=== PATIENT | male | born 1980 ===

== ENCOUNTER 2020-08-19 11:31 | Inpatient (IN) | payer OTHER ==
[~2020-08-19] VITALS: Ht 175.3 cm; Wt 81.6 kg
[~2020-08-19 11:31] MED LIST: CIPRO500 MG PO; FLAGYL500MG PO; INTESTINEX1 CAP PO; ULTRACET PO
== END 2020-08-22 18:44 | disposition home or self-care (01) | DRG 392 ==
LOC: ER 11:31 → SURH 15:03
PROVIDERS: ADMIT Internal Medicine; ATTEND Internal Medicine
PROC: BW21ZZZ Computerized Tomography (CT Scan) of Abdomen and Pelvis (ICD-10-PCS; principal; 2020-08-19)
PROC: 02HV33Z Insertion of Infusion Device into Superior Vena Cava, Percutaneous Approach (ICD-10-PCS; 2020-08-21)
DX: K57.32 Diverticulitis of large intestine without perforation or abscess without bleeding (principal); R10.32 Left lower quadrant pain; R29.898 Other symptoms and signs involving the musculoskeletal system; M62.81 Muscle weakness (generalized); M62.838 Other muscle spasm; Z20.828 Contact with and (suspected) exposure to other viral communicable diseases

== ENCOUNTER 2025-09-27 09:52 | Emergency (ER) | payer OTHER ==
[~2025-09-27] VITALS: Ht 175.3 cm; Wt 86.2 kg
[2025-09-27 11:54] LABS: BASO % 1.3 % (0.1-1.2); EOS # 0.68 (0.04-0.54); EOS % 8.6 % (0.7-7.0); LYMPH # 1.53 (1.18-3.74); LYMPH % 19.4 % (19.3-53.1); MEAN PLATELET VOLUME 10.60 fl (9.4-12.4); MONO # 0.62 (0.24-0.82); MONO % 7.9 % (4.7-12.5); NEUT # 4.93 (1.56-6.13); NEUT % 62.4 % (34.0-71.1); RED CELL DISTRIBUTION WIDTH 16.3 % (11.6-14.4)
[2025-09-27 12:47] LABS: ALT/SGPT 55.0 U/L (12-78); AST/SGOT 42.0 U/L (15-37); BILIRUBIN TOTAL 0.65 mg/dL (0.3-1.2); BUN CREA RATIO 14.0 (7.0-25.0); CREATININE SERUM 1.18 mg/dL (0.70-1.30); GFR 67.37; GLOBULINA 3.7 G/DL (2.4-3.5); GLUCOSE FASTING 87.0 mg/dL (65-100); OSMOLALITY SERUM 278.0 MOSM/KG (275-295)
[2025-09-27 12:52] LABS: CKMB 6.0 NG/ML (0.5-3.6)
== END 2025-09-27 14:58 | disposition home or self-care (01) ==
LOC: ER 09:52
PROVIDERS: Student in an Organized Health Care Education/Training Program
DX: R07.89 Other chest pain (principal); R11.0 Nausea; R42 Dizziness and giddiness

== ENCOUNTER → 2025-10-13 08:51 | Outpatient (CLI) | payer OTHER | END | disposition home or self-care (01) | LOC: NUCLEAR 10-12 10:00 | PROVIDERS: ATTEND Internal Medicine Cardiovascular Disease | DX: I20.1 Angina pectoris with documented spasm (principal) ==